=== PATIENT | female | born 1945 | race Caucasian/White ===

== ENCOUNTER 2019-03-15 14:44 | Emergency (ER) | payer OTHER ==
[2019-03-15 15:10] VITALS: BP 109/60; PULSE 64; TEMP 98.4; BMI 27.9
--- NOTE | 2019-03-15 15:17 | PDOC ---
Rapid Medical Evaluation Chief Complaint: Chronic pain Time Seen by Provider: 03/15/19 15:06 Medical Evaluation: 03/15/19 15:06 The patient presents to the ER for a flare of her chronic low pain. She states that she has run out of her pain medicine for the last two weeks. She has an appointment with a china painter in on 03/29. Denies fevers, chills , nausea, vomiting, saddle anesthesia, bladder/bowel incontinence. PShx of herniated disc Exam: in wheel chair, appears uncomfortable, no respiratory distress Orders: nothing Pt to proceed to the ER for further evaluation Discharge Disposition - Diagnosis Back pain - Referrals - Patient Instructions - Post Discharge Activity
[2019-03-15] MEDS ORDERED: KETOROLAC TROMETHAMINE 60 MG/2 ML VIAL IM ONE (15:36)
--- NOTE | 2019-03-15 15:43 | PDOC ---
History of Present Illness - General Chief Complaint: Chronic pain Stated Complaint: BACK PAIN Time Seen by Provider: 03/15/19 15:06 History Source: Patient Exam Limitations: No Limitations - History of Present Illness Initial Comments: 03/15/19 15:42 came to Er / BIBA for evaluation of chronic back pain. was seen not prescribe her any further pain medications. Patient has seen multiple providers in the past 2 months back pain and spondylolysis. Most recent visit was yesterday with Dr. Chin at [facility] who did not prescribe her any continuation of medications. Patient is in this emergency department tearful, stating she is unable to move with difficulty ambulating. Ran out of her medications a few weeks back. Denies numbness or tingling to feet, no changes in back pain as per her usual chronic low back issues. No problems with bowel or bladder. 03/15/19 16:32 Occurred: reports: other Severity: reports: mild Pain Location: reports: back Method of Injury: Yes: unknown Associated Symptoms (Fall): denies symptoms Past History - Travel Traveled outside of the country in the last 30 days: No Close contact w/someone who was outside of country & ill: No - Past Medical History Allergies/Adverse Reactions: Allergies Allergy/AdvReac Type Severity Reaction Status Date / Time No Known Allergies Allergy Verified 03/15/19 15:13 Home Medications: Ambulatory Orders Oxycodone HCl/Acetaminophen [Percocet 5-325 mg Tablet -] 1 - 2 tab PO Q4H PRN # 10 tablet MDD 4 03/15/19 COPD: No GI Disorders: Yes HTN: Yes Other medical history: back problem - Immunization History Immunization Up to Date: No - Suicide/Smoking/Psychosocial Hx Smoking History: Never smoked Have you smoked in the past 12 months: No Information on smoking cessation initiated: No Hx Alcohol Use: No Drug/Substance Use Hx: No Review of Systems - Review of Systems Able to Perform ROS?: Yes Is the patient limited Thai proficient: Yes Constitutional: Yes: Symptoms Reported, See HPI, Malaise. No: Fever HEENTM: No: Symptoms Reported Musculoskeletal: Yes: Symptoms Reported, See HPI, Back Pain, Muscle Pain Integumentary: Yes: See HPI. No: Symptoms Reported, Bruising All Other Systems: Reviewed and Negative *Physical Exam - Vital Signs Last Vital Signs Temp Pulse Resp BP Pulse Ox 98.4 F 64 16 109/60 100 03/15/19 15:00 03/15/19 15:00 03/15/19 15:00 03/15/19 15:00 03/15/19 15:00 - Physical Exam General Appearance: Yes: Nourished, Appropriately Dressed, Apparent Distress, Mild Distress, Moderate Distress (tearful), Severe Distress HEENT: positive: SHANON, Normal ENT Inspection, TMs Normal, Pharynx Normal Neck: positive: Supple. negative: Tender Respiratory/Chest: positive: Lungs Clear, Normal Breath Sounds Gastrointestinal/Abdominal: positive: Soft. negative: Tender Extremity: positive: Normal Inspection. negative: Normal Range of Motion, Tender Integumentary: positive: Dry, Warm, Pale Neurologic: positive: python architect II-XII NML intact, Fully Oriented, Alert, Normal Mood/ Affect, Normal Response, Motor Strength 5/5 Progress Note - Progress Note Progress Note: chronic back pain with no Pain management instituted. Attempts to expedite appointments with Ortho and spine surgery unsuccessful. Medical Decision Making - Medical Decision Making 03/15/19 15:52 Kartik with [phone] - needed he saw patient twice for preoperative clearance for extensive back surgery. States last time his interaction with her was in January where he prescribed Percocet and diazepam and that was his last interaction with the patient. He referred her to see Dr Mejia , neurosurgeon and that was the end of his interaction. 03/15/19 16:[address] [facility] that cannot be moved at March 29. attempts to discuss case with Dr Chin office [phone] *DC/Admit/Observation/Transfer Diagnosis at time of Disposition: Back pain Qualifiers: Back pain location: low back pain Chronicity: chronic Back pain laterality: unspecified Sciatica presence: unspecified whether sciatica present Qualified Code(s): M54.5 - Low back pain - Discharge Dispostion Disposition: HOME Condition at time of disposition: Stable Decision to Admit order: No - Prescriptions Prescriptions: Oxycodone HCl/Acetaminophen [Percocet 5-325 mg Tablet -] 1 - 2 tab PO Q4H PRN # 10 tablet MDD 4 PRN Reason: Pain - Referrals Referrals: Bryan Yanez MD [Staff Physician] - - Patient Instructions Printed Discharge Instructions: Managing Chronic Low Back Pain Additional Instructions: Rest, no heavy lifting or exercise until pain is resolved Hot soaks to neck and low back as often as possible/hot showers or Jacuzzis No massage or therapy until spasm is gone Continue all previous medications as prescribed for pain management including Meloxicam and Gabapentin Call and be seen by [facility] groups- Dr. Chin, Spine Surgeon [phone] If not significant improvement within 24 hours with medication and rest regime, followup with private physician for change in medications and /or therapy. - Post Discharge Activity
[2019-03-15] MEDS ORDERED: KETOROLAC TROMETHAMINE 60 MG/2 ML VIAL ONE (15:50)
== END 2019-03-15 17:01 | disposition home or self-care (01) ==
LOC: JERFT 14:44
PROC: 3E0233Z Introduction of Anti-inflammatory into Muscle, Percutaneous Approach (ICD-10-PCS; principal; 2019-03-15)
DX: M54.5 Low back pain (principal); G89.29 Other chronic pain
CPT/HCPCS: 96372; 99282-25